=== PATIENT | male | born 1945 | race Caucasian/White ===

== ENCOUNTER 2016-12-23 15:48 | Emergency (ER) | payer OTHER ==
[~2016-12-23] VITALS: Ht 172.7 cm; Wt 77.3 kg
[2016-12-23] MEDS ORDERED: MOTRIN600 MG PO (16:03)
[2016-12-23 16:19] VITALS: BP 140/96
== END 2016-12-23 16:19 | disposition home or self-care (01) ==
LOC: EME 15:48
DX: M70.21 Olecranon bursitis, right elbow (principal); F17.210 Nicotine dependence, cigarettes, uncomplicated; J44.9 Chronic obstructive pulmonary disease, unspecified; I10 Essential (primary) hypertension; E11.9 Type 2 diabetes mellitus without complications; Z79.4 Long term (current) use of insulin
CPT/HCPCS: 99281; 99284

== ENCOUNTER 2017-01-05 16:18 | Emergency (ER) | payer OTHER ==
[~2017-01-05] VITALS: Ht 172.7 cm; Wt 77.7 kg
[~2017-01-05 16:18] MED LIST: MOTRIN600 MG PO
[2017-01-05 19:35] LABS: HEMATOCRIT 47.2 % (38.0-50.0); MCH 30.5 PG (29.0-34.0); MCHC 35.2 G/DL (30.0-36.0); MCV 86.8 FL (86-99); MEAN PLAT.VOLUME 10.1 uM^3 (9.0-12.4); PLATELET COUNT 269 K/uL (156-360); RBC DIS.WIDTH-CV 12.7 % (11.8-14.6); RBC DIS.WIDTH-SD 39.9 % (39-53); RED BLOOD COUNT 5.44 M/uL (4.00-5.50)
[2017-01-05 19:59] LABS: CHLORIDE 99 mEq/L (99-109); SODIUM 134 mEq/L (136-147)
[2017-01-05 20:00] LABS: GLUCOSE 275 mg/dL (70-99)
[2017-01-05 20:02] LABS: ANION GAP 15 MEQ/L (2-14)
[2017-01-05 20:04] LABS: GFR ESTIMATE (CALCULATED) > 59 mL/min/
[2017-01-05 20:05] LABS: UREA NITROGEN (BUN) 8 mg/dL (9-23)
[2017-01-05 20:10] LABS: ERTH.SED.RATE 59 MM/HR (0-20)
[2017-01-05] MEDS ORDERED: PERCOCET 5/31 TABLET PO (21:40)
[2017-01-05 21:42] VITALS: BP 142/86
[2017-01-05 21:53] LABS: C-REACTIVE PROTEIN 26.5 MG/L (0-10)
[2017-01-06 09:09] LABS: LYME DISEASE SEROLOGY SCREEN NEGATIVE (NEGATIVE)
== END 2017-01-05 21:43 | disposition home or self-care (01) ==
LOC: EME 16:18
PROVIDERS: Physician Assistant
DX: M79.641 Pain in right hand (principal); R22.31 Localized swelling, mass and lump, right upper limb; I10 Essential (primary) hypertension; E11.9 Type 2 diabetes mellitus without complications; J44.9 Chronic obstructive pulmonary disease, unspecified; M10.9 Gout, unspecified; F17.200 Nicotine dependence, unspecified, uncomplicated
CPT/HCPCS: 72040; 73130; 80048; 85027; 85651; 86140; 86618; 93971; 99281; 99284

== ENCOUNTER 2017-03-12 07:31 | Day surgery (SDC) | payer OTHER ==
[~2017-03-12] VITALS: Ht 172.7 cm; Wt 72.5 kg
[~2017-03-12 07:31] MED LIST changes: +PERCOCET 5/31 TABLET PO
[2017-03-12 08:24] LABS: BASOPHIL COUNT 0.1 K/uL (0-0.1); EOSINOPHIL (%) 0.1 % (0-5); HEMATOCRIT 37.9 % (38.0-50.0); IMMATURE GRANULOCYTE (%) 1.7 % (0.0-0.7); IMMATURE GRANULOCYTE COUNT 0.4 K/uL; INSTRUMENT ABS NEUTROPHIL CT 16.9 K/uL; LYMPHOCYTE COUNT 2.4 K/uL (1.0-2.8); MCH 29.8 PG (29.0-34.0); MCHC 34.6 G/DL (30.0-36.0); MCV 86.1 FL (86-99); MEAN PLAT.VOLUME 10.1 uM^3 (9.0-12.4); MONOCYTE (%) 8.1 % (3-12); MONOCYTE COUNT 1.7 K/uL (0-0.8); NEUTROPHIL (%) 78.7 % (45-76); NEUTROPHIL COUNT 16.9 K/uL (1.8-6.4); PLATELET COUNT 346 K/uL (156-360); RBC DIS.WIDTH-CV 11.9 % (11.8-14.6); WHITE BLOOD COUNT 21.4 K/uL (4.1-10.2)
[2017-03-12 08:31] LABS: INTER. NORMALIZED RATIO 1.2; PROTHROMBIN TIME 13.3 SEC (10.2-12.9)
[2017-03-12 08:33] LABS: PTT 26.8 SEC (25-37)
[2017-03-12 08:34] LABS: CHLORIDE 97 mEq/L (99-109); POTASSIUM 3.8 mEq/L (3.7-5.4); SODIUM 134 mEq/L (136-147)
[2017-03-12 08:37] LABS: GLUCOSE 247 mg/dL (70-99)
[2017-03-12 08:38] LABS: ANION GAP 11 MEQ/L (2-14)
[2017-03-12 08:39] LABS: TOTAL BILIRUBIN 0.6 mg/dL (0.0-1.0)
[2017-03-12 08:40] LABS: ALKALINE PHOSPHATASE 155 IU/L (3-129); GFR ESTIMATE (CALCULATED) > 59 mL/min/ (58.99-99999)
[2017-03-12 08:41] LABS: UREA NITROGEN (BUN) 12 mg/dL (9-23)
[2017-03-12 08:42] LABS: POINT-OF-CARE METER ID UU14100415
[2017-03-12] MEDS ORDERED: ATENOLOL50 MG PO (10:54)
[2017-03-12] MEDS ORDERED: ASPIR-LOW81 MG PO (10:54)
[2017-03-12] MEDS ORDERED: NOVOLOG PE100 UNITS/ SC ×2 (10:56)
[2017-03-12] MEDS ORDERED: LEVEMIR FL100 UNIT/1 SC (10:58)
[2017-03-12 14:30] LABS: POINT-OF-CARE METER ID UU13113675
[2017-03-12 15:51] VITALS: BP 133/59
[2017-03-12 17:27] LABS: POINT-OF-CARE METER ID UU14208750; POINT-OF-CARE USER ID PUTDRM
[2017-03-12 19:28] VITALS: BP 92/53
[2017-03-12 21:47] LABS: POINT-OF-CARE METER ID UU14314084
[2017-03-13 00:07] VITALS: BP 121/65
[2017-03-13 03:59] VITALS: BP 116/56
[2017-03-13 06:02] LABS: HEMATOCRIT 35.1 % (38.0-50.0); MCH 29.5 PG (29.0-34.0); MCHC 33.9 G/DL (30.0-36.0); MCV 86.9 FL (86-99); MEAN PLAT.VOLUME 10.3 uM^3 (9.0-12.4); PLATELET COUNT 336 K/uL (156-360); RBC DIS.WIDTH-CV 12.2 % (11.8-14.6); RBC DIS.WIDTH-SD 39.3 % (39-53); RED BLOOD COUNT 4.04 M/uL (4.00-5.50)
[2017-03-13 06:34] LABS: POINT-OF-CARE METER ID UU14314084
[2017-03-13 06:38] LABS: ANION GAP 7 MEQ/L (2-14); CHLORIDE 102 MEQ/L (99-109); GFR ESTIMATE (CALCULATED) > 59 mL/min/ (58.99-99999); GLUCOSE 165 mg/dL (70-99); POTASSIUM 3.6 MEQ/L (3.7-5.4); SAMPLE HEMOLYSIS CHECK 0; SAMPLE ICTERIC CHECK 0; SAMPLE LIPEMIA CHECK 0; SODIUM 134 MEQ/L (136-147); UREA NITROGEN (BUN) 10 mg/dL (9-23)
[2017-03-13 07:40] VITALS: BP 117/58
[2017-03-13] MEDS ORDERED: BACTRIM,SEPT1 TABLET PO (11:43)
[2017-03-13 11:57] LABS: POINT-OF-CARE METER ID UU14208750
[2017-03-13 11:59] VITALS: BP 136/61
[2017-03-13 14:57] LABS: POINT-OF-CARE METER ID UU14208750
[2017-03-13 15:27] VITALS: BP 135/59
[2017-03-13 16:51] LABS: POINT-OF-CARE METER ID UU14208750
[2017-03-13 19:30] LABS: HEMATOCRIT 33.8 % (38.0-50.0); MCH 29.8 PG (29.0-34.0); MCHC 34.6 G/DL (30.0-36.0); MCV 86.2 FL (86-99); MEAN PLAT.VOLUME 10.3 uM^3 (9.0-12.4); PLATELET COUNT 344 K/uL (156-360); RBC DIS.WIDTH-CV 12.2 % (11.8-14.6); RBC DIS.WIDTH-SD 38.6 % (39-53); RED BLOOD COUNT 3.92 M/uL (4.00-5.50); WHITE BLOOD COUNT 14.3 K/uL (4.1-10.2)
[2017-03-13 19:53] LABS: ANION GAP 7 MEQ/L (2-14); CHLORIDE 100 MEQ/L (99-109); GFR ESTIMATE (CALCULATED) > 59 mL/min/ (58.99-99999); GLUCOSE 194 mg/dL (70-99); POTASSIUM 3.8 MEQ/L (3.7-5.4); SAMPLE HEMOLYSIS CHECK 0; SAMPLE ICTERIC CHECK 0; SAMPLE LIPEMIA CHECK 0; SODIUM 133 MEQ/L (136-147); UREA NITROGEN (BUN) 8 mg/dL (9-23)
[2017-03-13 19:55] LABS: ANISOCYTOSIS 1+; BASOPHIL COUNT 0.1 K/uL (0-0.1); EOSINOPHIL (%) 0.8 % (0-5); EOSINOPHIL COUNT 0.1 K/uL (0-0.3); IMMATURE GRANULOCYTE (%) 4.5 % (0.0-0.7); IMMATURE GRANULOCYTE COUNT 0.6 K/uL; INSTRUMENT ABS NEUTROPHIL CT 9.1 K/uL; LYMPHOCYTE COUNT 3.2 K/uL (1.0-2.8); MICROCYTOSIS 1+; MONOCYTE (%) 8.4 % (3-12); MONOCYTE COUNT 1.2 K/uL (0-0.8); NEUTROPHIL (%) 63.5 % (45-76); NEUTROPHIL COUNT 9.1 K/uL (1.8-6.4); TOXIC GRANULATION 2+
[2017-03-13 20:00] VITALS: BP 125/75
[2017-03-13 22:57] LABS: POINT-OF-CARE METER ID UU14208750; POINT-OF-CARE USER ID AHSUCEG
[2017-03-14] VITALS: BP 130/75
[2017-03-14 00:29] VITALS: BP 134/60
[2017-03-14 03:34] VITALS: BP 125/71
[2017-03-14 07:50] VITALS: BP 137/84
[2017-03-14 08:07] LABS: POINT-OF-CARE METER ID UU14208750
[2017-03-14 11:28] LABS: POINT-OF-CARE METER ID UU14208750
[2017-03-14 16:59] LABS: POINT-OF-CARE METER ID UU14314084
== END 2017-03-14 20:10 | disposition home health service (06) ==
LOC: EME 07:31 → SDC 13:30 → ENRESERV 14:47 → 2SOUTH 14:48 → ENRESERV 15:38 → 2EAST 15:58
PROVIDERS: Physician Assistant; Physician Assistant Surgical; Surgery
DX: L02.31 Cutaneous abscess of buttock (principal); A48.0 Gas gangrene; S70.01XA Contusion of right hip, initial encounter; M25.561 Pain in right knee; I48.91 Unspecified atrial fibrillation; I49.1 Atrial premature depolarization; I10 Essential (primary) hypertension; J44.9 Chronic obstructive pulmonary disease, unspecified; E11.9 Type 2 diabetes mellitus without complications; W01.0XXA Fall on same level from slipping, tripping and stumbling without subsequent striking against object, initial encounter; Y92.230 Patient room in hospital as the place of occurrence of the external cause; F17.200 Nicotine dependence, unspecified, uncomplicated; Z79.4 Long term (current) use of insulin
CPT/HCPCS: 73502; 73560; 74177; 80048; 80048 91; 80053; 82948; 83605; 85025; 85027; 85610; 85730; 87040; 93005; 99281; 99285; G0378; G8978 GP CJ; G8979 GP CH; G8980 CJ; J0131; J1100; J1170; J1815; J2250; J2405; J2543; J3010; J3370; J7030; J7050; S0020

== ENCOUNTER 2017-03-20 14:28 | Emergency (ER) | payer OTHER ==
[~2017-03-20] VITALS: Ht 172.7 cm; Wt 75.0 kg
[~2017-03-20 14:28] MED LIST changes: +ASPIR-LOW81 MG PO; +ATENOLOL50 MG PO; +BACTRIM,SEPT1 TABLET PO; +LEVEMIR FL100 UNIT/1 SC; +NOVOLOG PE100 UNITS/ SC
[2017-03-20] MEDS ORDERED: PERCOCET 5/31 TABLET PO (17:44)
[2017-03-20 18:16] VITALS: BP 109/85
== END 2017-03-20 18:16 | disposition home or self-care (01) ==
LOC: EME 14:28
DX: M25.551 Pain in right hip (principal); L02.31 Cutaneous abscess of buttock; E11.9 Type 2 diabetes mellitus without complications; Z79.4 Long term (current) use of insulin; Z79.82 Long term (current) use of aspirin; F17.200 Nicotine dependence, unspecified, uncomplicated
CPT/HCPCS: 99281; 99284

== ENCOUNTER 2017-06-04 09:38 | Inpatient (IN) | payer OTHER ==
[~2017-06-04] VITALS: Ht 172.7 cm; Wt 72.5 kg
[2017-06-04 11:07] LABS: BASOPHIL (%) 0.3 % (0-1); BASOPHIL COUNT 0.1 K/uL (0-0.1); EOSINOPHIL (%) 0.1 % (0-5); HEMATOCRIT 39.8 % (38.0-50.0); HEMOGLOBIN 13.6 G/DL (12.5-16.6); IMMATURE GRANULOCYTE (%) 0.6 % (0.0-0.7); LYMPHOCYTE (%) 11.9 % (15-42); LYMPHOCYTE COUNT 2.1 K/uL (1.0-2.8); MCH 29.5 PG (29.0-34.0); MCHC 34.2 G/DL (30.0-36.0); MCV 86.3 FL (86-99); MONOCYTE COUNT 1.3 K/uL (0-0.8); NEUTROPHIL (%) 80.1 % (45-76); NEUTROPHIL COUNT 14.4 K/uL (1.8-6.4); PLATELET COUNT 362 K/uL (156-360); RBC DIS.WIDTH-CV 12.1 % (11.8-14.6); RBC DIS.WIDTH-SD 38.5 % (39-53); RED BLOOD COUNT 4.61 M/uL (4.00-5.50); WHITE BLOOD COUNT 17.9 K/uL (4.1-10.2)
[2017-06-04 11:16] LABS: CHLORIDE 100 mEq/L (99-109); POTASSIUM 4.4 mEq/L (3.7-5.4); SODIUM 134 mEq/L (136-147)
[2017-06-04 11:17] LABS: GLUCOSE 201 mg/dL (70-99)
[2017-06-04 11:21] LABS: CREATININE 0.7 mg/dL (0.6-1.3); GFR ESTIMATE (CALCULATED) > 59 mL/min/ (58.99-99999)
[2017-06-04 11:22] LABS: UREA NITROGEN (BUN) 10 mg/dL (9-23)
[2017-06-04] MEDS ORDERED: NOVOLOG 10100 UNITS/ SC (12:17)
[2017-06-04 15:42] VITALS: BP 109/53
[2017-06-04 20:02] VITALS: BP 110/52
[2017-06-04 23:41] VITALS: BP 117/58
[2017-06-05 04:52] VITALS: BP 110/52
[2017-06-05 06:13] LABS: HEMATOCRIT 36.9 % (38.0-50.0); HEMOGLOBIN 12.2 G/DL (12.5-16.6); MCH 28.8 PG (29.0-34.0); MCHC 33.1 G/DL (30.0-36.0); MCV 87.2 FL (86-99); PLATELET COUNT 366 K/uL (156-360); RBC DIS.WIDTH-CV 12.2 % (11.8-14.6); RBC DIS.WIDTH-SD 39.1 % (39-53); RED BLOOD COUNT 4.23 M/uL (4.00-5.50); WHITE BLOOD COUNT 19.1 K/uL (4.1-10.2)
[2017-06-05 06:36] LABS: CHLORIDE 103 MEQ/L (99-109); CREATININE 0.6 MG/DL (0.6-1.3); GFR ESTIMATE (CALCULATED) > 59 mL/min/ (58.99-99999); GLUCOSE 126 mg/dL (70-99); POTASSIUM 4.5 MEQ/L (3.7-5.4); SODIUM 132 MEQ/L (136-147); UREA NITROGEN (BUN) 10 mg/dL (9-23)
[2017-06-05 08:09] VITALS: BP 112/68
[2017-06-05 10:41] VITALS: BP 118/56
[2017-06-05 15:53] VITALS: BP 121/76
[2017-06-05 19:40] VITALS: BP 113/82
[2017-06-05 23:35] VITALS: BP 135/62
[2017-06-06] VITALS (7 sets, daily range): BP systolic 115–150; BP diastolic 59–90
[2017-06-06 03:45] LABS: HEMATOCRIT 35.7 % (38.0-50.0); HEMOGLOBIN 12.3 G/DL (12.5-16.6); MCH 29.6 PG (29.0-34.0); MCHC 34.5 G/DL (30.0-36.0); PLATELET COUNT 355 K/uL (156-360); RBC DIS.WIDTH-CV 12.1 % (11.8-14.6); RBC DIS.WIDTH-SD 38.2 % (39-53); RED BLOOD COUNT 4.15 M/uL (4.00-5.50); WHITE BLOOD COUNT 16.1 K/uL (4.1-10.2)
[2017-06-06 03:54] LABS: CHLORIDE 101 mEq/L (99-109); POTASSIUM 4.1 mEq/L (3.7-5.4); SODIUM 132 mEq/L (136-147)
[2017-06-06 03:56] LABS: GLUCOSE 113 mg/dL (70-99)
[2017-06-06 04:00] LABS: CREATININE 0.6 mg/dL (0.6-1.3); GFR ESTIMATE (CALCULATED) > 59 mL/min/ (58.99-99999)
[2017-06-06 04:01] LABS: UREA NITROGEN (BUN) 10 mg/dL (9-23)
[2017-06-07 05:18] VITALS: BP 124/58
[2017-06-07 06:30] LABS: HEMATOCRIT 35.2 % (38.0-50.0); HEMOGLOBIN 11.7 G/DL (12.5-16.6); MCH 28.5 PG (29.0-34.0); MCHC 33.2 G/DL (30.0-36.0); MCV 85.9 FL (86-99); PLATELET COUNT 385 K/uL (156-360); RBC DIS.WIDTH-SD 37.9 % (39-53); WHITE BLOOD COUNT 15.7 K/uL (4.1-10.2)
[2017-06-07 07:02] LABS: CHLORIDE 106 MEQ/L (99-109); CREATININE 0.6 MG/DL (0.6-1.3); GFR ESTIMATE (CALCULATED) > 59 mL/min/ (58.99-99999); GLUCOSE 104 mg/dL (70-99); POTASSIUM 4.2 MEQ/L (3.7-5.4); SODIUM 136 MEQ/L (136-147); UREA NITROGEN (BUN) 11 mg/dL (9-23)
[2017-06-07 07:47] VITALS: BP 142/67
[2017-06-07 15:26] VITALS: BP 123/59
[2017-06-07 23:55] VITALS: BP 115/57
[2017-06-08 08:10] VITALS: BP 133/60
[2017-06-08 11:34] VITALS: BP 121/58
[2017-06-08 14:21] LABS: MCH 28.5 PG (29.0-34.0); MCHC 32.4 G/DL (30.0-36.0); MCV 87.9 FL (86-99); PLATELET COUNT 455 K/uL (156-360); RBC DIS.WIDTH-CV 12.1 % (11.8-14.6); RBC DIS.WIDTH-SD 39.1 % (39-53); RED BLOOD COUNT 4.21 M/uL (4.00-5.50); WHITE BLOOD COUNT 11.4 K/uL (4.1-10.2)
[2017-06-08 19:27] VITALS: BP 140/66
[2017-06-08 23:46] VITALS: BP 121/61
[2017-06-09 03:01] VITALS: BP 136/63
[2017-06-09 07:42] LABS: BASOPHIL (%) 0.8 % (0-1); BASOPHIL COUNT 0.1 K/uL (0-0.1); EOSINOPHIL (%) 1.7 % (0-5); EOSINOPHIL COUNT 0.2 K/uL (0-0.3); HEMATOCRIT 35.6 % (38.0-50.0); HEMOGLOBIN 11.9 G/DL (12.5-16.6); IMMATURE GRANULOCYTE (%) 0.5 % (0.0-0.7); LYMPHOCYTE (%) 23.8 % (15-42); MCH 29.2 PG (29.0-34.0); MCHC 33.4 G/DL (30.0-36.0); MCV 87.5 FL (86-99); MONOCYTE (%) 8.7 % (3-12); MONOCYTE COUNT 1.1 K/uL (0-0.8); NEUTROPHIL (%) 64.5 % (45-76); NEUTROPHIL COUNT 8.1 K/uL (1.8-6.4); PLATELET COUNT 430 K/uL (156-360); RBC DIS.WIDTH-CV 12.4 % (11.8-14.6); RBC DIS.WIDTH-SD 39.4 % (39-53); RED BLOOD COUNT 4.07 M/uL (4.00-5.50); WHITE BLOOD COUNT 12.5 K/uL (4.1-10.2)
[2017-06-09 08:00] LABS: CHLORIDE 104 MEQ/L (99-109); POTASSIUM 3.9 MEQ/L (3.7-5.4); SODIUM 136 MEQ/L (136-147)
[2017-06-09 08:36] LABS: CREATININE 0.5 MG/DL (0.6-1.3); GFR ESTIMATE (CALCULATED) > 59 mL/min/ (58.99-99999); GLUCOSE 132 mg/dL (70-99); UREA NITROGEN (BUN) 8 mg/dL (9-23)
[2017-06-09 09:43] LABS: ERTH.SED.RATE > 130 MM/HR (0-20)
[2017-06-09 12:16] VITALS: BP 122/58
[2017-06-09 12:40] VITALS: BP 119/64
[2017-06-09 15:29] VITALS: BP 146/67
[2017-06-09 17:37] LABS: C-REACTIVE PROTEIN 44.6 MG/L (0-10)
[2017-06-09 20:46] VITALS: BP 126/64
[2017-06-09 23:37] VITALS: BP 176/77
[2017-06-10 04:05] VITALS: BP 130/60
[2017-06-10 05:32] LABS: BASOPHIL (%) 0.7 % (0-1); BASOPHIL COUNT 0.1 K/uL (0-0.1); EOSINOPHIL (%) 0.9 % (0-5); EOSINOPHIL COUNT 0.1 K/uL (0-0.3); IMMATURE GRANULOCYTE (%) 0.4 % (0.0-0.7); LYMPHOCYTE (%) 20.9 % (15-42); LYMPHOCYTE COUNT 3.2 K/uL (1.0-2.8); MCH 28.9 PG (29.0-34.0); MCHC 33.3 G/DL (30.0-36.0); MCV 86.7 FL (86-99); MONOCYTE COUNT 1.1 K/uL (0-0.8); NEUTROPHIL (%) 70.1 % (45-76); NEUTROPHIL COUNT 10.6 K/uL (1.8-6.4); PLATELET COUNT 449 K/uL (156-360); RBC DIS.WIDTH-CV 12.3 % (11.8-14.6); RBC DIS.WIDTH-SD 39.2 % (39-53); RED BLOOD COUNT 4.15 M/uL (4.00-5.50); WHITE BLOOD COUNT 15.2 K/uL (4.1-10.2)
[2017-06-10 06:04] LABS: CHLORIDE 103 MEQ/L (99-109); CREATININE 0.5 MG/DL (0.6-1.3); GFR ESTIMATE (CALCULATED) > 59 mL/min/ (58.99-99999); GLUCOSE 144 mg/dL (70-99); POTASSIUM 3.9 MEQ/L (3.7-5.4); SODIUM 134 MEQ/L (136-147); UREA NITROGEN (BUN) 8 mg/dL (9-23)
[2017-06-10 08:11] VITALS: BP 144/65
[2017-06-10 11:44] VITALS: BP 120/59
[2017-06-10 16:24] VITALS: BP 129/66
[2017-06-10 21:55] VITALS: BP 128/60
[2017-06-11] VITALS (7 sets, daily range): BP systolic 122–136; BP diastolic 60–66
[2017-06-11 06:16] LABS: BASOPHIL (%) 0.6 % (0-1); BASOPHIL COUNT 0.1 K/uL (0-0.1); EOSINOPHIL (%) 2.1 % (0-5); EOSINOPHIL COUNT 0.3 K/uL (0-0.3); HEMOGLOBIN 12.3 G/DL (12.5-16.6); IMMATURE GRANULOCYTE (%) 0.5 % (0.0-0.7); LYMPHOCYTE (%) 26.5 % (15-42); LYMPHOCYTE COUNT 3.5 K/uL (1.0-2.8); MCH 28.5 PG (29.0-34.0); MCHC 33.2 G/DL (30.0-36.0); MCV 85.8 FL (86-99); MONOCYTE (%) 8.7 % (3-12); MONOCYTE COUNT 1.1 K/uL (0-0.8); NEUTROPHIL (%) 61.6 % (45-76); PLATELET COUNT 488 K/uL (156-360); RBC DIS.WIDTH-CV 12.1 % (11.8-14.6); RBC DIS.WIDTH-SD 38.5 % (39-53); RED BLOOD COUNT 4.31 M/uL (4.00-5.50)
[2017-06-11 06:31] LABS: ALBUMIN 2.8 G/DL (3.2-4.8); ALKALINE PHOSPHATASE 106 IU/L (3-129); ALT (GPT) 8 IU/L (3-49); AST (GOT) 11 IU/L (2-34); CHLORIDE 103 MEQ/L (99-109); CREATININE 0.5 MG/DL (0.6-1.3); GFR ESTIMATE (CALCULATED) > 59 mL/min/ (58.99-99999); HDL CHOLESTEROL 35 MG/DL (Desirable>=40); LDL CHOLESTEROL 78 mg/dL (Desirable<100); NON-HDL CHOLESTEROL 90 mg/dL (Desirable<160); POTASSIUM 3.7 MEQ/L (3.7-5.4); SODIUM 136 MEQ/L (136-147); TOTAL BILIRUBIN 0.3 MG/DL (0.0-1.0); TOTAL CHOLESTEROL 125 mg/dL (Desirable<200); TOTAL PROTEIN 6.7 G/DL (6.4-8.3); TRIGLYCERIDES 59 MG/DL (Normal: <150); UREA NITROGEN (BUN) 8 mg/dL (9-23)
[2017-06-11 06:32] LABS: GLUCOSE 101 mg/dL (70-99)
[2017-06-11 13:54] LABS: HEMOGLOBIN A1c (GLYCOHEMOGLOB) 8.4 % (Below 5.7)
[2017-06-12 03:40] VITALS: BP 118/54
[2017-06-12 06:22] LABS: BASOPHIL (%) 0.9 % (0-1); BASOPHIL COUNT 0.1 K/uL (0-0.1); EOSINOPHIL (%) 2.8 % (0-5); EOSINOPHIL COUNT 0.3 K/uL (0-0.3); HEMATOCRIT 36.9 % (38.0-50.0); HEMOGLOBIN 12.1 G/DL (12.5-16.6); IMMATURE GRANULOCYTE (%) 0.5 % (0.0-0.7); LYMPHOCYTE (%) 27.5 % (15-42); LYMPHOCYTE COUNT 3.2 K/uL (1.0-2.8); MCH 28.3 PG (29.0-34.0); MCHC 32.8 G/DL (30.0-36.0); MCV 86.4 FL (86-99); MONOCYTE (%) 11.1 % (3-12); MONOCYTE COUNT 1.3 K/uL (0-0.8); NEUTROPHIL (%) 57.2 % (45-76); NEUTROPHIL COUNT 6.7 K/uL (1.8-6.4); PLATELET COUNT 452 K/uL (156-360); RBC DIS.WIDTH-CV 12.3 % (11.8-14.6); RBC DIS.WIDTH-SD 39.6 % (39-53); RED BLOOD COUNT 4.27 M/uL (4.00-5.50); WHITE BLOOD COUNT 11.7 K/uL (4.1-10.2)
[2017-06-12 06:48] LABS: ALBUMIN 2.8 G/DL (3.2-4.8); ALKALINE PHOSPHATASE 106 IU/L (3-129); ALT (GPT) 12 IU/L (3-49); CHLORIDE 105 MEQ/L (99-109); CREATININE 0.6 MG/DL (0.6-1.3); GFR ESTIMATE (CALCULATED) > 59 mL/min/ (58.99-99999); GLUCOSE 138 mg/dL (70-99); SODIUM 135 MEQ/L (136-147); TOTAL PROTEIN 6.7 G/DL (6.4-8.3); UREA NITROGEN (BUN) 9 mg/dL (9-23)
[2017-06-12 06:49] LABS: AST (GOT) 23 IU/L (2-34); TOTAL BILIRUBIN 0.2 MG/DL (0.0-1.0)
[2017-06-12 08:14] VITALS: BP 124/56
[2017-06-12 12:04] VITALS: BP 107/52
[2017-06-12] MEDS ORDERED: OXYCODONE HCL5 MG PO (12:06)
[2017-06-12] MEDS ORDERED: SPIRIVA RESPIMAT4 GM IH (12:06)
[2017-06-12] MEDS ORDERED: DOCUSATE SODIU100 MG PO (12:06)
[2017-06-12] MEDS ORDERED: ATORVASTATIN CA40 MG PO (12:06)
[2017-06-12] MEDS ORDERED: NOVOLOG 10100 UNITS/ SC (12:06)
[2017-06-12] MEDS ORDERED: CLOPIDOGREL75 MG PO (12:06)
[2017-06-12] MEDS ORDERED: LOPRESSOR25 MG PO (12:06)
[2017-06-12] MEDS ORDERED: NICOTINE PATCH1 EAC2 TD (12:06)
[2017-06-12] MEDS ORDERED: AUGMENTIN875 MG PO (12:07)
== END 2017-06-12 15:13 | disposition home or self-care (01) | DRG 253 ==
LOC: EME 09:38 → EDOF 12:00 → 3EAST 12:00 → ENRESERV 12:02 → EDOF 12:25 → ENRESERV 13:27 → 3EAST 15:32
PROVIDERS: Emergency Medicine; Hospitalist; Internal Medicine; Internal Medicine Infectious Disease; Physician Assistant
DX: E11.52 Type 2 diabetes mellitus with diabetic peripheral angiopathy with gangrene (principal); L03.031 Cellulitis of right toe; I73.9 Peripheral vascular disease, unspecified; I96 Gangrene, not elsewhere classified; F17.200 Nicotine dependence, unspecified, uncomplicated; I48.91 Unspecified atrial fibrillation; I74.5 Embolism and thrombosis of iliac artery; J44.9 Chronic obstructive pulmonary disease, unspecified; I70.261 Atherosclerosis of native arteries of extremities with gangrene, right leg; I65.23 Occlusion and stenosis of bilateral carotid arteries; I10 Essential (primary) hypertension; F17.210 Nicotine dependence, cigarettes, uncomplicated; R94.31 Abnormal electrocardiogram [ECG] [EKG]; D11.0 Benign neoplasm of parotid gland; E11.69 Type 2 diabetes mellitus with other specified complication; E11.621 Type 2 diabetes mellitus with foot ulcer; E78.5 Hyperlipidemia, unspecified; Z79.82 Long term (current) use of aspirin; Z79.02 Long term (current) use of antithrombotics/antiplatelets; Z79.4 Long term (current) use of insulin
CPT/HCPCS: 70498; 73630; 73720; 73725; 80048; 80053; 80061; 80202; 82948; 83036; 83605; 85025; 85027; 85652; 86140; 87040; 87070; 87075; 87076; 87185; 87205; 88305; 88311; 93005; 93880; 93926; 94640; 94640 76; 99202; 99281; 99285; A6260; C1725; C1760; C1769; C1874; C1887; C1894; J0330; J0690; J1100; J1200; J1644; J1650; J1815; J1885; J2250; J2405; J2543; J3010; J3370; J7030; J7050; S0020

== ENCOUNTER 2017-06-13 12:37 | Emergency (ER) | payer OTHER ==
[~2017-06-13] VITALS: Ht 172.7 cm; Wt 73.5 kg
[~2017-06-13 12:37] MED LIST changes: +ATORVASTATIN CA40 MG PO; +AUGMENTIN875 MG PO; +CLOPIDOGREL75 MG PO; +DOCUSATE SODIU100 MG PO; +LOPRESSOR25 MG PO; +NICOTINE PATCH1 EAC2 TD; +NOVOLOG 10100 UNITS/ SC; +OXYCODONE HCL5 MG PO; +SPIRIVA RESPIMAT4 GM IH
[2017-06-13 13:15] LABS: BASOPHIL (%) 0.6 % (0-1); BASOPHIL COUNT 0.1 K/uL (0-0.1); EOSINOPHIL (%) 1.6 % (0-5); EOSINOPHIL COUNT 0.2 K/uL (0-0.3); HEMATOCRIT 37.2 % (38.0-50.0); HEMOGLOBIN 12.4 G/DL (12.5-16.6); IMMATURE GRANULOCYTE (%) 0.4 % (0.0-0.7); LYMPHOCYTE (%) 26.1 % (15-42); LYMPHOCYTE COUNT 3.3 K/uL (1.0-2.8); MCH 29.1 PG (29.0-34.0); MCHC 33.3 G/DL (30.0-36.0); MCV 87.3 FL (86-99); MONOCYTE (%) 7.7 % (3-12); NEUTROPHIL (%) 63.6 % (45-76); NEUTROPHIL COUNT 8.1 K/uL (1.8-6.4); PLATELET COUNT 507 K/uL (156-360); RBC DIS.WIDTH-CV 12.3 % (11.8-14.6); RBC DIS.WIDTH-SD 39.8 % (39-53); RED BLOOD COUNT 4.26 M/uL (4.00-5.50); WHITE BLOOD COUNT 12.8 K/uL (4.1-10.2)
[2017-06-13 13:27] LABS: CHLORIDE 104 mEq/L (99-109); POTASSIUM 4.6 mEq/L (3.7-5.4); SODIUM 136 mEq/L (136-147)
[2017-06-13 13:29] LABS: GLUCOSE 179 mg/dL (70-99)
[2017-06-13 13:33] LABS: CREATININE 0.7 mg/dL (0.6-1.3); GFR ESTIMATE (CALCULATED) > 59 mL/min/ (58.99-99999); UREA NITROGEN (BUN) 9 mg/dL (9-23)
[2017-06-13 15:02] VITALS: BP 120/67
== END 2017-06-13 15:03 | disposition home or self-care (01) ==
LOC: EME → EDBD 12:37 → EME 15:03
PROVIDERS: Emergency Medicine
DX: M96.831 Postprocedural hemorrhage of a musculoskeletal structure following other procedure (principal); Z48.01 Encounter for change or removal of surgical wound dressing; E11.9 Type 2 diabetes mellitus without complications; J44.9 Chronic obstructive pulmonary disease, unspecified; I10 Essential (primary) hypertension; M10.9 Gout, unspecified; F17.200 Nicotine dependence, unspecified, uncomplicated; Z79.82 Long term (current) use of aspirin; Z79.4 Long term (current) use of insulin; Z98.890 Other specified postprocedural states; Z89.411 Acquired absence of right great toe
CPT/HCPCS: 80048; 85025; 99281; 99284

== ENCOUNTER → 2017-08-04 | Outpatient (CLI) | payer OTHER ==
[~2017-08-04] MED LIST changes: +COLACE100 MG PO; +LIPITOR40 MG PO; +PLAVIX75 MG PO
== END | disposition home or self-care (01) ==
LOC: RES 07:24
DX: J98.4 Other disorders of lung (principal); R94.2 Abnormal results of pulmonary function studies
CPT/HCPCS: 94060; 94726; 94729

== ENCOUNTER 2017-08-05 12:14 | Day surgery (SDC) | payer OTHER ==
[~2017-08-05] VITALS: Ht 172.7 cm; Wt 79.0 kg
[2017-08-05 13:01] VITALS: BP 136/68
[2017-08-05 17:30] VITALS: BP 160/70
[2017-08-05 18:30] VITALS: BP 157/69
== END 2017-08-05 18:37 | disposition home or self-care (01) ==
LOC: SDC 12:14
PROVIDERS: Podiatrist Foot & Ankle Surgery
PROC: 0Y6M0Z5 Detachment at Right Foot, Complete 2nd Ray, Open Approach (ICD-10-PCS; principal; 2017-08-05)
PROC: 0Y6P0Z0 Detachment at Right 1st Toe, Complete, Open Approach (ICD-10-PCS; principal; 2017-08-05)
DX: E11.69 Type 2 diabetes mellitus with other specified complication (principal); E11.40 Type 2 diabetes mellitus with diabetic neuropathy, unspecified; M86.471 Chronic osteomyelitis with draining sinus, right ankle and foot; I73.9 Peripheral vascular disease, unspecified; J44.9 Chronic obstructive pulmonary disease, unspecified; I10 Essential (primary) hypertension; I47.1 Supraventricular tachycardia; Z79.82 Long term (current) use of aspirin; Z87.891 Personal history of nicotine dependence; Z79.4 Long term (current) use of insulin; Z79.02 Long term (current) use of antithrombotics/antiplatelets
CPT/HCPCS: 82948; 87070; 87075; 87077; 87186; 87205; 88305; J0690; J3010; S0020